=== PATIENT | male | born 1975 | race Caucasian/White ===

== ENCOUNTER 2019-10-22 20:48 | Emergency (ER) | payer MEDICAID ==
[~2019-10-22] VITALS: Ht 175.3 cm; Wt 99.8 kg
--- NOTE | 2019-10-22 20:48 | NUR ---
TO ER BED 6 AMBULATORY C/O MIDSTERNAL CHEST PAIN X10 DAYS. PT AAOX4 NO ACUTE DISTRESS NOTED, RESP EVEN AND UNLABORED. SKIN WARM, NONDIAPHORETIC. PLACE PT ON CARDIAC MONITORING, CONTINUOUS POX. PENDING ER MD MARIE.
[2019-10-22] MEDS ORDERED: METOPROLOL TARTRATE INJ 5 MG/5 ML AMPUL ONE (21:12)
[2019-10-22] MEDS ORDERED: NITROGLYCERIN 0.4 MG/TAB BOTTLE ONE (21:12)
[2019-10-22] MEDS ORDERED: ASPIRIN 325 MG TABLET ONE (21:12)
--- NOTE | 2019-10-22 21:16 | NUR ---
STARTED SL.18G TO LAC, BLOOD DRAWN AND SENT TO LAB.
[2019-10-22 21:21] LABS: BASOPHILS # (AUTO) 0.1 /CMM (0.0-0.2); EOSINOPHILS % (AUTO) 3.1 % (0.0-6.0); HEMATOCRIT 46 % (39-51); LYMPHOCYTES # (AUTO) 2.9 /CMM (0.8-4.8); LYMPHOCYTES % (AUTO) 33.2 % (20.0-44.0); MEAN CORPUSCULAR HGB CONC 35 g/dl (31.0-36.0); MEAN CORPUSCULAR VOLUME 97 fL (80-96); MONOCYTES # (AUTO) 0.6 /CMM (0.1-1.30); MONOCYTES % (AUTO) 6.6 % (2.0-12.0); NEUTROPHILS # (AUTO) 4.9 /CMM (1.8-8.9); NEUTROPHILS % (AUTO) 56.1 % (43.0-81.0); PLATELET COUNT (AUTO) 165 /CMM (150-450); RED BLOOD CELL COUNT(AUTO) 4.77 MIL/uL (4.5-6.0); WHITE BLOOD COUNT (AUTO) 8.7 K/uL (4.3-11.0)
--- NOTE | 2019-10-22 21:21 | NUR ---
PT MEDICATED PER ER MD ORDER.
[2019-10-22] MEDS ORDERED: ASPIRIN 325 MG TABLET PO ONE (21:30)
[2019-10-22] MEDS ORDERED: NITROGLYCERIN 0.4 MG/TAB BOTTLE SL ONE (21:30)
[2019-10-22] MEDS ORDERED: METOPROLOL TARTRATE INJ 5 MG/5 ML AMPUL IVP ONE (21:30)
[2019-10-22 21:31] LABS: CALCIUM, SERUM 8.8 mg/dL (8.5-10.1); CARBON DIOXIDE 27 mmol/L (21-32); CHLORIDE 105 mmol/L (98-107); CREATININE 1.2 mg/dL (0.6-1.3); GLUCOSE 120 mg/dL (74-106); POTASSIUM 3.5 mmol/L (3.5-5.1); SODIUM SERUM 143 mmol/L (136-145); UREA NITROGEN, BLOOD 18 mg/dL (7-18)
--- NOTE | 2019-10-22 22:26 | NUR ---
ER MD ZUNIGA AT BEDSIDE TALKING TO PT REGARDING CT CERVICAL SPINE RESULT.
[2019-10-22] MEDS ORDERED: NITROGLYCERIN PACKET 1 GM PACKET TD ONE (22:30)
[2019-10-22 22:41] LABS: ALBUMIN 4.1 g/dL (3.4-5.0); BILIRUBIN,DIRECT 0.1 mg/dL (0.0-0.2); BILIRUBIN,TOTAL 0.4 mg/dL (0.2-1.0); TOTAL PROTEIN, SERUM 7.3 g/dL (6.4-8.2)
[2019-10-22] MEDS ORDERED: IV NS 0.9% 250 ML IV ONE (22:42)
[2019-10-22] MEDS ORDERED: CT SWABBABLE VALVE TRANS SET 1 EA INFUS.SET MC ONE (22:42)
[2019-10-22] MEDS ORDERED: IOHEXOL-350 100 ML VIAL IV ONE (22:42)
[2019-10-22] MEDS ORDERED: NITROGLYCERIN PACKET 1 GM PACKET ONE (23:38)
--- NOTE | 2019-10-22 23:45 | NUR ---
PT RESTING IN BED QUIETLY, NO ACUTE DISTRESS NOTED, RESP EVEN AND UNLABORED. CALL LIGHT WITHIN REACH. WILL CONTINUE TO MONITOR PT CLOSELY. AWAITING CT RESULT.
--- NOTE | 2019-10-23 00:22 | NUR ---
Note alonso in ED - 10/23/[address] at [address] RESULT STEFAN RECEIVED. ABRAN CARRANZA MADE AWARE. PENDING DISPOSITION.
--- NOTE | 2019-10-23 00:22 | NUR ---
CT RESULTRECEIVED. ER MADE AWARE. PENDING DISPOSITION.
--- NOTE | 2019-10-23 00:24 | NUR ---
ER MD AT BEDSIDE TALKING TO PT AND PT BROTHER REGARDING CT RESULTS.
--- NOTE | 2019-10-23 00:35 | NUR ---
PT REFUSING TO WAIT FOR 2ND TROPONIN RESULT AND WOULD LIKE TO LEAVE AGAINST MEDICAL ADVICE. ER MD TALKING TO PT AT THIS TIME.
[2019-10-23 00:37] VITALS: BP 163/97
--- NOTE | 2019-10-23 00:40 | NUR ---
Patient does not wish to proceed with medical care recommended by Dr. Jama. Patient given information related to possible complications, up to and including , which could occur as a result of leaving the hospital at this time. Patient verbalizes understanding of risks involved due to leaving against medical advice. Patient has signed AMA form.IV removed. Catheter intact and site benign. Pressure and 4x4 applied to site. No bleeding noted.Pt ambulatory with a steady gait
== END 2019-10-23 00:41 | disposition left against medical advice (07) ==
LOC: ER 20:50
DX: R07.89 Other chest pain (principal); M54.2 Cervicalgia; L55.9 Sunburn, unspecified; R93.7 Abnormal findings on diagnostic imaging of other parts of musculoskeletal system; F17.210 Nicotine dependence, cigarettes, uncomplicated; I10 Essential (primary) hypertension
CPT/HCPCS: 36415 ×2; 70498; 71045; 71275; 72125; 80048; 80076; 84484 ×2; 85025; 93005; 96374; 99285; 99406; J3490; J7050; Q9967

== ENCOUNTER 2023-07-19 19:25 | Emergency (ER) | payer MEDICAID ==
[~2023-07-19] VITALS: Ht 167.6 cm; Wt 108.9 kg
[2023-07-19 21:16] LABS: APPEARANCE,URINE SLIGHTLY CLOUDY (CLEAR); BILIRUBIN,URINE NEGATIVE (NEGATIVE); BLOOD, URINE 1+ Ery/uL (NEGATIVE); COLOR,URINE YELLOW (YELLOW); KETONES,URINE NEGATIVE (NEGATIVE); LEUKOCYTE ESTERASE ,URINE 1+ (NEGATIVE); NITRITE, URINE POSITIVE (NEGATIVE); PROTEIN,URINE 2+ mg/dl (NEGATIVE); UGLUCOSE NEGATIVE (NEGATIVE)
[2023-07-19] MEDS ORDERED: CIPROFLOXACIN HCL 250 MG TABLET PO ONE (21:30)
[2023-07-19] MEDS ORDERED: PHENAZOPYRIDINE HCL 200 MG TABLET PO ONE (21:30)
[2023-07-19 21:31] LABS: ADD URINE CULTURE YES; BACTERIA,URINE 2+ /HPF (None Seen); MUCUS,URINE Few /LPF (None Seen); SQUAMOUS EPITHELIAL CELL,UR 0-2 /HPF (None Seen)
[2023-07-19] MEDS ORDERED: CIPROFLOXACIN HCL 500 MG TABLET ONE (21:35)
[2023-07-19] MEDS ORDERED: PHENAZOPYRIDINE HCL 200 MG TABLET ONE (21:35)
[2023-07-19] MEDS ORDERED: CIPR500T5 PO (22:22)
[2023-07-19] MEDS ORDERED: HYDROCODONE/APAP 5/325MG TABLET PO ONE (22:30)
[2023-07-19] MEDS ORDERED: HYDROCODONE/APAP 5/325MG TABLET ONE (22:32)
[2023-07-19 22:47] VITALS: BP 171/104; TEMP 98.1; O2SAT 99
== END 2023-07-19 22:47 | disposition home or self-care (01) ==
LOC: ER 19:29
DX: N39.0 Urinary tract infection, site not specified (principal); R30.0 Dysuria; R31.9 Hematuria, unspecified; R10.30 Lower abdominal pain, unspecified; I10 Essential (primary) hypertension; F17.200 Nicotine dependence, unspecified, uncomplicated
CPT/HCPCS: 81001; 87086-TC

== ENCOUNTER 2024-07-08 23:23 | Emergency (ER) | payer MEDICAID, OTHER ==
[~2024-07-08] VITALS: Ht 175.3 cm; Wt 113.4 kg
[~2024-07-08 23:23] MED LIST: CIPR500T5 PO
[2024-07-09 00:14] VITALS: TEMP 98.4
[2024-07-09] MEDS ORDERED: ASPIRIN 325 MG TABLET ONE (00:22)
[2024-07-09] MEDS ORDERED: AMLODIPINE BESYLATE 10 MG TABLET ONE (00:22)
[2024-07-09] MEDS ORDERED: ASPIRIN 325 MG TABLET PO ONE (00:30)
[2024-07-09] MEDS: LISINOPRIL (20MG) 20 MG TABLET PO SCH (00:32)
[2024-07-09] MEDS: AMLODIPINE BESYLATE 5 MG TABLET PO ONE (00:32)
[2024-07-09 00:38] LABS: BASOPHILS % (AUTO) 0.6 % (0.0-2.0); EOSINOPHILS # (AUTO) 0.3 K/uL (0.0-0.7); EOSINOPHILS % (AUTO) 4.1 % (0.0-6.0); HEMATOCRIT 44 % (39-51); HEMOGLOBIN 15.4 g/dL (13.5-17.5); LYMPHOCYTES # (AUTO) 2.6 K/uL (0.8-4.8); LYMPHOCYTES % (AUTO) 32.1 % (20.0-44.0); MEAN CORPUSCULAR HEMOGLOBIN 34 PG (26.0-33.0); MEAN CORPUSCULAR HGB CONC 35 g/dl (31.0-36.0); MEAN CORPUSCULAR VOLUME 97 fL (80-96); MONOCYTES # (AUTO) 0.7 K/uL (0.1-1.30); MONOCYTES % (AUTO) 8.2 % (2.0-12.0); NEUTROPHILS # (AUTO) 4.4 K/uL (1.8-8.9); PLATELET COUNT (AUTO) 168 K/uL (150-450); RED BLOOD CELL COUNT(AUTO) 4.59 MIL/uL (4.5-6.0); RED CELL DISTRIBUTION WIDTH 13.5 % (11.5-15.0)
[2024-07-09 00:46] LABS: CALCIUM, SERUM 8.7 mg/dL (8.5-10.1); CARBON DIOXIDE 29 mmol/L (21-32); CHLORIDE 107 mmol/L (98-107); CREATININE 1.1 mg/dL (0.6-1.3); GLUCOSE 142 mg/dL (74-106); SODIUM SERUM 143 mmol/L (136-145); UREA NITROGEN, BLOOD 22 mg/dL (7-18)
[2024-07-09] MEDS ORDERED: KETO10TA2 PO (02:17)
[2024-07-09] MEDS ORDERED: KETOROLAC TROMETHAMINE 15 MG/ML VIAL ONE (02:22)
[2024-07-09] MEDS: KETOROLAC TROMETHAMINE 15 MG/ML VIAL IV ONE (02:27)
[2024-07-09 02:31] VITALS: BP 158/108; O2SAT 98
== END 2024-07-09 02:31 | disposition home or self-care (01) ==
LOC: ER 23:25
DX: R07.9 Chest pain, unspecified (principal); M79.10 Myalgia, unspecified site; R11.0 Nausea; R51.9 Headache, unspecified; F17.200 Nicotine dependence, unspecified, uncomplicated; I10 Essential (primary) hypertension; Z79.899 Other long term (current) drug therapy
CPT/HCPCS: 99285; 96374; 71045; 93005; 85025; 80048; 36415; 84484 ×2; J1885